=== PATIENT | male | born 1960 | race Caucasian/White ===

== ENCOUNTER 2016-08-07 16:49 | Emergency (ER) | payer SELFPAY ==
[~2016-08-07] VITALS: Ht 177.8 cm; Wt 68.0 kg
[~2016-08-07 16:49] MED LIST: ASPI81TA82 PO; HYDR-3533 PO
[2016-08-07 16:52] VITALS: BP 122/70; PULSE 80; RESP 16; TEMP 98.2; O2SAT 98
--- NOTE | 2016-08-07 16:57 | PD ---
Physical Exam Date Seen by Provider: Aug 07, 2016 Time Seen by Provider: 16:54 Narrative 56 y/o male here with injury to right lateral hand from a daisy hammer. Patient has pain and swelling to right dorsal lateral hand. No open wound, but old abrasion present. No other injury reported. V/S Stable Awaiting bed placement. X-ray ordered. Data Data Last Documented VS Vital Signs Date Time Temp Pulse Resp B/P Pulse Ox O2 Delivery O2 Flow Rate FiO2 08/07/16 16:52 98.2 80 16 122/70 98 MDM Medical Record Reviewed: Yes Supervised Visit with SUPRIYA: Yes Condition: Stable Smooth Boothe Aug 07, 2016 16:57
--- NOTE | 2016-08-07 17:02 | PD ---
HPI . Right hand pain Chief Complaint: Injury Time Seen by Provider: 17:02 Travel History International Travel<30 days: No Contact w/Intl Traveler<30days: No Traveled to known affect area: No History of Present Illness HPI 56-year-old male with history of heart attack and CAD here with complaints of right hand pain. Patient was using a jackhammer when it accidentally slipped and smashed his hand between some blocks. He is now complaining of 7/10 pain in the right hand near the 4th and 5th metacarpals. He says there is no radiation of the pain elsewhere. He does admit to drinking 2 beers today, but says that did not cause his injury. He denies any other injury. He is left handed dominant. PFSH Past Medical History Hx Anticoagulant Therapy: Yes (ASA 81 mg daily) Cancer: No Cardiac Catheterization: Yes Cardiovascular Problems: Yes (VT x2) Chemotherapy: No Cerebrovascular Accident: No Coronary Artery Disease: Yes Diabetes: No Diminished Hearing: No Psychiatric: No Respiratory: No Immunizations Current: Yes Myocardial Infarction: Yes Radiation Therapy: No Past Surgical History AICD: No Cardiac Surgery: Yes (angioplasty) Insulin Pump: No Joint Replacement: No Pacemaker: No Social History Alcohol Use: Yes (5 beers a day) Tobacco Use: Yes (1ppd) Substance Use: Yes (MARIJUANNA) Allergies-Medications (Allergen,Severity, Reaction): Coded Allergies: No Known Allergies (Verified , 08/07/16) Reported Meds & Prescriptions Reported Meds & Active Scripts Active Lortab 5 mg/325 mg (Hydrocodone/Acetaminophen 5 mg/325 mg) 1 Tab 1 Tab PO Q6H PRN Reported Aspirin Low Dose (Aspirin) 81 Mg Chew 81 Mg CHEW DAILY Review of Systems General / Constitutional: No: Fever Eyes: No: Visual changes HENT: No: Headaches Cardiovascular: No: Chest Pain or Discomfort Respiratory: No: Shortness of Breath Gastrointestinal: No: Abdominal Pain Genitourinary: No: Dysuria Musculoskeletal: Positive: Pain (right hand pain) Skin: No Rash Neurologic: No: Weakness Psychiatric: No: Depression Endocrine: No: Polydipsia Hematologic/Lymphatic: No: Easy Bruising Physical Exam Narrative GENERAL: AAO x 3, no acute distress, Well-nourished, well-developed patient. SKIN: Warm and dry. No visible rashes or bruising. Some edema to the right hand over the metacarpals, minimal edema to the phalanges. Old abrasion over the same area that is healed. Pulses are normal right hand. Cap refill normal. HEAD: Normocephalic and atraumatic. EYES: No scleral icterus. No injection or drainage. ENT: No nasal drainage noted. Mucous membranes pink. Airway patent. NECK: Supple, trachea midline. No JVD. CARDIOVASCULAR: Regular rate and rhythm without murmurs, gallops, or rubs. RESPIRATORY: Breath sounds equal bilaterally. No accessory muscle use. No rhonchi or rales. GASTROINTESTINAL: Abdomen soft, non-tender, nondistended. EXTREMITIES: No cyanosis. Edema over the fourth and fifth metacarpal. There is some minimal edema over the fourth and fifth phalanges. Point tenderness over the fourth and fifth metacarpal. 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 NO evidence of compartment syndrome. No extreme tightness over the hand. 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 BACK: Nontender without obvious deformity. No CVA tenderness. PSYCH: AAO x 3, normal affect. Data Data Last Documented VS Vital Signs Date Time Temp Pulse Resp B/P Pulse Ox O2 Delivery O2 Flow Rate FiO2 08/07/16 16:52 98.2 80 16 122/70 98 Orders Hand, Complete ([id number]) (08/07/16 16:57) Ice/Cold Pack (08/07/16 16:57) Ketorolac Inj (Toradol Inj) (08/07/16 17:15) MDM Medical Decision Making Medical Screen Exam Complete: Yes Emergency Medical Condition: Yes Medical Record Reviewed: Yes Differential Diagnosis 5th metacarpal fracture, less likely dislocation, less likely compartment syndrome Narrative Course 56-year-old male with history of heart attack and CAD here with complaints of right hand pain. Patient was using a jackhammer when it accidentally slipped and smashed his hand between some blocks. He is now complaining of 7/10 pain in the right hand near the 4th and 5th metacarpals. He says there is no radiation of the pain elsewhere. He does admit to drinking 2 beers today, but says that did not cause his injury. He denies any other injury. He is left handed dominant. Patient seen and examined. Xray ordered. Last Impressions Hand X-Ray 08/07/16 9315 Signed Impressions: Service Date/Time: Sunday, August 07, 2016 17:05 - CONCLUSION: Fifth metacarpal fracture. K. Cam Mathews MD [id number]: I discussed results with patient: He has reiterated to me that he does not want any type of splint or restrictive device. He says he has to work. I explained that he will need to see hand surgery and he says he cannot because he must work. He shows me that he is able to move all of his fingers and that he cannot afford to have any type of restrictive device on his hand. I recommend splint and hand. He is adamant about not wanting services. He has chosen to sign out AMA. I have checked his hand again. The swelling is significantly reduced and almost gone. He has movement in all of his digits except limited ROM of the 5th finger. The muscles are nice and loose and does not have any evidence of compartment syndrome. Pulses are intact. Cap refill is normal. I discussed compartment syndrome with him and his and explained that if any of the signs develop that they need to come back to the ED immediately as that is a serious emergency. They both verbalized understanding. I stressed out patient hand follow up at minimum. He keeps telling me that he will not wear any type of restrictive device nor can he be out of work for any amount of time. Referrals: Hand Surgeon Patient Instructions: General Instructions Additional Instructions: Please return the the emergency department in 24 hours for us to check if there are any abnormalities of your hand. You need to elevate this hand. Ice it for at least 15-20 minutes every 2-3 hours. Do not use this hand over the night. Please follow-up with the hand surgeon this week. Please return to emergency department if your symptoms return or worsen. Follow up with your primary care provider. Take medications as prescribed. Med/Other Pt SpecificInfo: Prescription(s) given Disposition: 07 AGAINST MEDICAL ADVICE Condition: Stable Merissa Kidd Aug 07, 2016 17:02
[2016-08-07] MEDS ORDERED: KETOROLAC TROMETHAMINE 60 MG/2 ML (IM) VIAL IM ONE (17:15)
[2016-08-07] MEDS ORDERED: ASPI81CH37 CHEW (17:16)
--- NOTE | 2016-08-07 18:12 | RADRPT ---
EXAM DATE/TIME: 08/07/2016 17:05 [facility] COMPARISON: No previous studies available for comparison. INDICATIONS : Right hand pain and swelling from crushing injury. MEDICAL HISTORY : None. SURGICAL HISTORY : Amputation of distal left second digit 8 years ago, Fifth digit fracture three years ago ENCOUNTER: Initial ACUITY: 1 day PAIN SCORE: 10/10 LOCATION: Right hand FINDINGS: There is a complete fracture of the fifth metacarpal bone with slight angulation. There is amputation of the second distal phalanx. CONCLUSION: Fifth metacarpal fracture. Jewel Mathews MD on August 07, 2016 at 18:09 Board Certified Radiologist. This report was verified electronically.
== END 2016-08-07 18:30 | disposition left against medical advice (07) ==
LOC: NEPK 16:49
DX: Z53.21 Procedure and treatment not carried out due to patient leaving prior to being seen by health care provider (principal); M79.641 Pain in right hand; Z79.82 Long term (current) use of aspirin; F17.210 Nicotine dependence, cigarettes, uncomplicated; F12.90 Cannabis use, unspecified, uncomplicated; W31.89XA Contact with other specified machinery, initial encounter; Y93.H3 Activity, building and construction
CPT/HCPCS: 73130; 96372; 99283; J1885

== ENCOUNTER 2017-03-04 17:15 | Emergency (ER) | payer SELFPAY ==
[~2017-03-04] VITALS: Ht 180.3 cm; Wt 70.0 kg
[~2017-03-04 17:15] MED LIST changes: +ASPI81CH6 CHEW; -ASPI81TA82 PO
[2017-03-04 17:17] VITALS: BP 137/81; PULSE 81; RESP 16; TEMP 97.5
--- NOTE | 2017-03-04 17:40 | PD ---
HPI Chief Complaint: Complaint Time Seen by Provider: 17:40 Travel History International Travel<30 days: No Contact w/Intl Traveler<30days: No Traveled to known affect area: No History of Present Illness HPI 56-year-old male presents to emergency department with dysuria, penile discharge, and urgency. Patient has mild low back pain. Patient denies new sexual partner can't guarantee his current partner is true to him. Patient denies nausea, vomiting, or other symptoms. Patient has no history of kidney stones. Patient has no known drug allergies. PFSH Past Medical History Hx Anticoagulant Therapy: Yes (ASA 81 mg daily) Cancer: No Cardiac Catheterization: Yes Cardiovascular Problems: Yes Chemotherapy: No Cerebrovascular Accident: No Coronary Artery Disease: Yes Diabetes: No Diminished Hearing: No Psychiatric: No Respiratory: No Immunizations Current: Yes Myocardial Infarction: Yes Radiation Therapy: No Past Surgical History AICD: No Cardiac Surgery: Yes (angioplasty) Insulin Pump: No Joint Replacement: No Pacemaker: No Social History Alcohol Use: Yes (beer social) Tobacco Use: Yes (1 pack/day ) Substance Use: No Allergies-Medications (Allergen,Severity, Reaction): Coded Allergies: No Known Allergies (Verified , 08/07/16) Reported Meds & Prescriptions Reported Meds & Active Scripts Active Lortab 5 mg/325 mg (Hydrocodone/Acetaminophen 5 mg/325 mg) 1 Tab 1 Tab PO Q6H PRN Reported Aspirin Low Dose (Aspirin) 81 Mg Chew 81 Mg CHEW DAILY Review of Systems Except as stated in HPI: all other systems reviewed are Neg General / Constitutional: No: Fever Eyes: No: Visual changes HENT: No: Headaches Cardiovascular: No: Chest Pain or Discomfort Respiratory: No: Shortness of Breath Gastrointestinal: No: Abdominal Pain Genitourinary: Positive: Urgency, Frequency, Dysuria, Discharge Musculoskeletal: No: Pain Skin: No Rash Neurologic: No: Weakness Psychiatric: No: Depression Endocrine: No: Polydipsia Hematologic/Lymphatic: No: Easy Bruising Physical Exam Narrative GENERAL: Patient appears in mild to moderate distress. SKIN: Warm and dry. Normal color. Normal turgor. No rash. HEAD: Atraumatic. Normocephalic. EYES: Pupils equal and round. No scleral icterus. No injection or drainage. ENT: No nasal bleeding or discharge. Mucous membranes pink and moist. Chest is clear. Airway is patent. NECK: Trachea midline. Supple and nontender. CARDIOVASCULAR: Regular rate and rhythm. RESPIRATORY: No accessory muscle use. Clear to auscultation. Breath sounds equal bilaterally. GASTROINTESTINAL: Abdomen soft, nondistended. Hepatic and splenic margins not palpable. Mild suprapubic tenderness is noted. No CVA tenderness noted. MUSCULOSKELETAL: Extremities without clubbing, cyanosis, or edema. No obvious deformities. NEUROLOGICAL: Awake and alert. No obvious cranial nerve deficits. Motor grossly within normal limits. Five out of 5 muscle strength in the arms and legs. Normal speech. PSYCHIATRIC: Appropriate mood and affect; insight and judgment normal. Data Data Last Documented VS Vital Signs Date Time Temp Pulse Resp B/P (MAP) Pulse Ox O2 Delivery O2 Flow Rate FiO2 03/04/17 17:17 97.5 81 16 137/81 (99) Orders Orders Phenazopyridine (Pyridium) (03/04/17 18:15) Ceftriaxone Inj (Rocephin Inj) (03/04/17 18:15) Lidocaine 1% Inj (50 Ml) (Xylocaine 1% I (03/04/17 18:15) Azithromycin (Zithromax) (03/04/17 18:15) Urinalysis - C+S If Indicated (03/04/17 18:07) Gc And Chlamydia Pcr (03/04/17 18:07) Sodium Chloride 0.9% Flush (Ns Flush) (03/04/17 18:15) MDM Medical Decision Making Medical Screen Exam Complete: Yes Emergency Medical Condition: Yes Differential Diagnosis Dysuria. Urinary tract infection. Prostatitis. STD. Narrative Course Urinalysis is collected, and GC chlamydia ordered. Patient is given Rocephin 1000 mg IM, as well as 1000 mg of azithromycin by mouth. Patient will be continued on Cipro 500 mg twice a day #20. Patient also given Pyridium 100 mg 3 times a day when necessary dysuria #15. Urine culture is pending. Patient should follow with his primary care physician or return to emergency department worsening symptoms as needed. Diagnosis Primary Impression: Dysuria Additional Impression: STD (male) Referrals: Primary Care Physician Patient Instructions: Dysuria (ED), General Instructions Additional Instructions: Urinalysis is collected, and GC chlamydia ordered. Patient is given Rocephin 1000 mg IM, as well as 1000 mg of azithromycin by mouth. Patient will be continued on Cipro 500 mg twice a day #20. Patient also given Pyridium 100 mg 3 times a day when necessary dysuria #15. Urine culture is pending. Patient should follow with his primary care physician or return to emergency department worsening symptoms as needed. Med/Other Pt SpecificInfo: Prescription(s) given Scripts Ciprofloxacin (Cipro) 500 Mg Tab 500 MG PO BID for Infection, #20 TAB 0 Refills Prov: Duncan Briones MD 03/04/17 Phenazopyridine (Pyridium) 100 Mg Tab 100 MG PO Q8H Y for DYSURIA, #15 TAB 0 Refills Prov: Duncan Briones MD 03/04/17 Disposition: 01 DISCHARGE HOME Condition: Stable Smooth Boothe Mar 04, 2017 17:40
[2017-03-04] MEDS ORDERED: PHEN0.4T PO (18:11)
[2017-03-04] MEDS ORDERED: CIPR-9 PO (18:11)
[2017-03-04] MEDS ORDERED: PHENAZOPYRIDINE HCL 200 MG TAB PO ONE (18:15)
[2017-03-04] MEDS ORDERED: AZITHROMYCIN 250 MG TAB PO ONE (18:15)
[2017-03-04] MEDS ORDERED: SODIUM CHLORIDE 0.9% FLUSH 10 ML FLUSH IVF PRN (18:15)
[2017-03-04] MEDS ORDERED: LIDOCAINE HCL 1% 50 ML VIAL INFIL ONE (18:15)
[2017-03-04 18:32] LABS: BLOOD, URINE LARGE (NEG); COMMENT (UR) CULT NOT INDICATED; CULTURE IF INDICATED CULT NOT INDICATED; GLUCOSE,URINE NEG (NEG); KETONE, URINE NEG (NEG); NITRITE,URINE NEG (NEG); PH, URINE 7.5 (5.0-8.5); URINE COLOR LIGHT-YELLOW (YELLW/STRAW)
== END 2017-03-04 19:05 | disposition home or self-care (01) ==
LOC: NEPC 17:15
DX: R30.0 Dysuria (principal); A64 Unspecified sexually transmitted disease; I25.10 Atherosclerotic heart disease of native coronary artery without angina pectoris; I25.2 Old myocardial infarction; F17.200 Nicotine dependence, unspecified, uncomplicated; Z79.82 Long term (current) use of aspirin; Z79.899 Other long term (current) drug therapy
CPT/HCPCS: 81001; 96372; 99284; J0696